=== PATIENT | male | born 1995 | race Two or more races ===

== ENCOUNTER 2021-11-16 16:30 | Emergency (ER) | payer BC, SELFPAY ==
--- NOTE | ~2021-11-16 | CT_ITS ---
EXAMINATION: CT ABDOMEN AND PELVIS WITH CONTRAST CLINICAL INFORMATION: Left lower quadrant pain, diarrhea. COMPARISON: None TECHNIQUE: Multidetector volumetric images were obtained from the superior aspect of the liver through the pubic symphysis following administration 85 mL of Omnipaque 350 intravenous contrast. Sagittal and coronal reformatted images were obtained on the technologist's workstation. Oral contrast: No This CT examination was performed using dose optimization techniques as appropriate, variously including the following: *Automated exposure control *Adjustment of mA and/or kV according to patient size (this includes techniques or standardized protocols for targeted exams where dose is matched to indication/reason for exam; i.e. extremities or head) *Use of iterative reconstruction technique DLP: 424 mGy-cm FINDINGS: LUNG BASES: The visualized lung bases are unremarkable. LIVER, GALLBLADDER, AND BILIARY TREE: Tiny hypoechoic focus anterosuperiorly in the left lobe measuring 0.4 cm (image 11, series 3). A second similar focus laterally in the right lobe measures 0.2 cm (image 28, series 3). No other significant hepatobiliary abnormality. PANCREAS: Unremarkable. SPLEEN: Unremarkable. ADRENAL GLANDS: Unremarkable. KIDNEYS AND URETERS: The kidneys are normal in size, shape, and attenuation. No hydronephrosis, hydroureter, or calculi seen. No perinephric stranding. BLADDER: Minimally distended limiting evaluation without overt abnormality. GASTROINTESTINAL TRACT: The stomach and small bowel unremarkable. The appendix appears surgically absent with surgical clips at the base of the cecum and right lower quadrant without abnormality. The colon and rectum are unremarkable. ABDOMINAL WALL: No significant hernia is appreciated. LYMPH NODES: No lymphadenopathy. VASCULAR: Unremarkable. PELVIC VISCERA: Unremarkable. OSSEOUS STRUCTURES: Transitional L5-S1 with sacral CT/CT abdomen pelvis w con IMPRESSION: 1. No acute intra-abdominal/pelvic abnormality. No significant bowel abnormality. 2. Tiny hepatic foci are too small likely characterize, but demonstrate benign features. No other significant hepatic abnormality.
[2021-11-16 16:45] VITALS: BP 158/109; PULSE 112; RESP 20; TEMP 37.2; O2SAT 98; BMI 22.3
[2021-11-16 17:16] LABS: MANUAL DIFF FLAG NO
[2021-11-16 17:31] LABS: Anion Gap 14 (12-20); Blood Urea Nitrogen 11 mg/dL (9-16); Calcium 10.1 mg/dL (8.4-10.2); Carbon Dioxide 24 mmol/L (22-29); Chloride 103 mmol/L (96-108); Creatinine Clr Calc Pharmacy 150.5; Estimated Glomerular Filt Rate > 60; Glucose Random 107 mg/dL (60-115); Potassium 3.7 mmol/L (3.3-5.1); Sodium 137 mmol/L (135-145)
[2021-11-16 17:47] LABS: Basophils Percent Auto 0.4 % (0-2); Eosinophils Percent Auto 0.2 % (0-4); Hematocrit 44.3 % (42.0-52.0); Imm Gran Abs Auto 0.08 X10*3/uL (0.00-0.03); Imm Gran Pct Auto 0.9 % (0.0-0.4); Lymphocytes Absolute Auto 2.4 X10*3/uL (1.2-4.9); Lymphocytes Percent Auto 26.2 % (20-40); Mean Corpuscular HGB Conc 36.1 g/dl (31.0-36.0); Mean Corpuscular Hemoglobin 31.3 pg (27.0-33.0); Mean Corpuscular Volume 86.7 fL (80.0-98.0); Mean Platelet Volume 9.8 fL (9.4-12.4); Monocytes Percent Auto 10.8 % (2-11); Neutrophils Absolute Auto 5.7 x10*3/uL (2.0-8.3); Neutrophils Percent Auto 61.5 % (45-73); Platelet Count 254 X10*3/uL (160-400); Red Blood Count 5.11 X10*6/uL (4.60-5.80); Red Cell Distribution Width 12.8 % (11.0-16.0); White Blood Count 9.3 X10*3/uL (4.8-10.8)
--- NOTE | 2021-11-16 19:31 | ED_ITS ---
HPI - Abdominal Pain General Chief Complaint: Abdominal Pain <DERECK Sewell Last Filed: 11/16/21 21:10> Stated Complaint: abd pain - [facility] <DERECK Sewell Last Filed: 11/16/21 21:10> Time Seen by Provider: 11/16/21 19:29 <DERECK Sewell Last Filed: 11/16/21 21:10> Source: patient <DERECK Sewell Last Filed: 11/16/21 21:10> Mode of arrival: ambulatory <DERECK Sewell Last Filed: 11/16/21 21:10> Limitations: no limitations <DERECK Sewell Last Filed: 11/16/21 21:10> History of Present Illness HPI narrative: 26-year-old male previously healthy here with reports of 4 days of left lower quadrant abdominal pain with associated diarrhea and nausea. Patient reports 8-10 episodes of diarrhea a day. No vomiting. No fevers or chills. The patient reports his stools have appeared dark. He has taken intermittent Pepto-Bismol. He was seen at urgent care today and referred into the emergency department for further evaluation. He did have a negative COVID test there. No recent travel or sick contact. <DERECK Sewell Last Filed: 11/16/21 21:10> Related Data Home Medications: Previous Rx's Medication Instructions Recorded dicyclomine 10 mg capsule 10 mg PO TID PRN #15 cap 11/16/21 ondansetron 4 mg disintegrating 4 mg PO Q6H PRN #10 tab 11/16/21 tablet <DERECK Sewell Last Filed: 11/16/21 21:10> Allergies/Adverse Reactions: Allergies Allergy/AdvReac Type Severity Reaction Status Date / Time No Known Allergies Allergy Unverified 06/29/20 19:11 [No Known Allergies*] <DERECK Sewell Last Filed: 11/16/21 21:10> Review of Systems Review of Systems Yes all other systems are reviewed and are negative <DERECK Sewell Last Filed: 11/16/21 21:10> Constitutional: Reports no additional constitutional complaints, Denies body ache(s), Denies chills, Denies fever(s), Denies headache(s) and Denies weakness <Aubrie Monaco NP - Last Filed: 11/16/21 21:10> Eyes: Reports no additional eye complaints and Denies change in vision <Aubrie Monaco NP - Last Filed: 11/16/21 21:10> Reports system reviewed and no additional complaints, except as documente d, Denies dizziness, Denies headache(s), Denies nasal congestion, Denies nasal discharge and Denies neck pain <Aubrie Monaco NP - Last Filed: 11/16/21 21:10> Cardiovascular: Reports no additional cardiovascular complaints, Denies chest pain, Denies leg edema and Denies dyspnea <Aubrie Monaco NP - Last Filed: 11/16/21 21:10> Respiratory: Reports no additional respiratory complaints, Denies cough and Denies dyspnea <Aubrie Monaco NP - Last Filed: 11/16/21 21:10> Gastrointestinal: Reports no additional gastrointestinal complaints, Reports abdominal pain, Reports melena, Reports diarrhea, Reports nausea and Denies vomiting <Aubrie Monaco NP - Last Filed: 11/16/21 21:10> Genitourinary: Denies urinary incontinence <Aubrie Monaco NP - Last Filed: 11/16/21 21:10> Musculoskeletal: Reports no additional musculoskeletal complaints, Denies back pain, Denies arthralgias, Denies joint swelling, Denies neck pain, Denies numbness and Denies tingling <Aubrie Monaco NP - Last Filed: 11/16/21 21:10> Skin/Breast: Reports system reviewed and no additional complaints, except as docu and Denies rash <Aubrie Monaco NP - Last Filed: 11/16/21 21:10> Reports system reviewed and no additional complaints, except as documented, Denies Abnormal speech present, Denies dizziness, Denies headache(s), Denies numbness, Denies tingling and Denies weakness <Aubrie Monaco NP - Last Filed: 11/16/21 21:10> Physical Exam Verdana 4l Vital Signs: Verdana 4d Verdana 4d Vital Signs: Verdana 4d Verdana 4Bd Last Vital Signs Verdana 4d Director Of Retail Operations New 4d Director Of Retail Operations New 4d Temp 98.3 F 11/16/21 20:58 Director Of Retail Operations New 4d Pulse 85 11/16/21 20:58 Director Of Retail Operations New 4d Resp 18 11/16/21 20:58 BP 150/91 H 11/16/21 20:58 Pulse Ox 99 11/16/21 20:58 BMI result Body Mass Index 22.3 <Aubrie Monaco NP - Last Filed: 11/16/21 21:10> Vital Signs: Last Vital Signs Temp 98.3 F 11/16/21 20:58 Pulse 85 11/16/21 20:58 Resp 18 11/16/21 20:58 BP 150/91 H 11/16/21 20:58 Pulse Ox 99 11/16/21 20:58 BMI result Body Mass Index 22.3 <MERT Osborn - Last Filed: 11/16/21 22:24> Const: General: cooperative, healthy appearing, comfortable and no acute distress <Aubrie Monaco NP - Last Filed: 11/16/21 21:10> Orientation/consciousness: patient oriented x3 <Aubrie Monaco NP - Last Filed: 11/16/21 21:10> Limitations: no limitations <Aubrie Monaco NP - Last Filed: 11/16/21 21:10> HENMT: Head: Yes normal to inspection <Aubrie Monaco NP - Last Filed: 11/16/21 21:10> Ears: hearing grossly normal bilaterally <Aubrie Monaco NP - Last Filed: 11/16/21 21:10> General nose exam: Normal external nose present <Aubrie Monaco NP - Last Filed: 11/16/21 21:10> Face and sinus: Yes normal facial exam <Aburie Monaco NP - Last Filed: 11/16/21 21:10> Mouth: Normal oral and palatal mucosa present <Aubrie Monaco NP - Last Filed: 11/16/21 21:10> Throat: Yes posterior oropharynx normal <Aubrie Monaco NP - Last Filed: 11/16/21 21:10> Eyes: General: appearance normal, both eyes and all related structures <Aubrie fraga NP - Last Filed: 11/16/21 21:10> Pupils: Equal, round and reactive pupils present <Aubrie Monaco NP - Last Filed: 11/16/21 21:10> Neck: Neck: Yes normal visual inspection <Aubrie Monaco NP - Last Filed: 11/16/21 21:10> Chest: Chest palpation & inspection: normal inspection of the chest <Aubrie Monaco NP - Last Filed: 11/16/21 21:10> Resp: Effort & Inspection: normal respiratory effort <Aubrie Monaco NP - Last Filed: 11/16/21 21:10> Auscultation: clear to auscultation bilaterally <Aubrie Monaco NP - Last Filed: 11/16/21 21:10> Cardio: Rate: regular rate <Aubrie Monaco NP - Last Filed: 11/16/21 21:10> Rhythm: regular rhythm <Aubrie Monaco NP - Last Filed: 11/16/21 21:10> Peripheral pulses: Peripheral pulses 2+ throughout <Aubrie Monaco NP - Last Filed: 11/16/21 21:10> GI: Other: patient had small BM in hat which was brown in appearance. <Aubrie Monaco NP - Last Filed: 11/16/21 21:10> Inspection: Yes normal to inspection <Aubrie Monaco NP - Last Filed: 02/01 21:10> Palpation (GI): Soft to palpation and Tenderness to palpation present (GI) (Left lower quadrant-no rebound or guarding) <Aubrie Monaco NP - Last Filed: 11/16/21 21:10> Auscultation: normal bowel sounds <Aubrie Monaco NP - Last Filed: 11/16/21 21:10> Back/Spine/Pelvis: Thoracic/Lumbar Spine: thoracic and lumbar spine normal to inspection <Aubrie Monaco NP - Last Filed: 11/16/21 21:10> Skin: General skin exam: no rashes or lesions noted <Aubrie Monaco NP - Last Filed: 11/16/21 21:10> Neuro: General: patient oriented x3, no focal motor deficits and normal sensation to monofilament <Aubrie Monaco NP - Last Filed: 11/16/21 21:10> Cranial nerves: Yes Equal, round and reactive pupils present <Aubrie Monaco NP - Last Filed: 11/16/21 21:10> Cognition (Neuro): normal cognition <Aubrie Monaco NP - Last Filed: 0 11/16/21 21:10> Speech: No Abnormal speech present <Aubrie Monaco NP - Last Filed: 11/16/21 21:10> Gait exam (Neuro): Normal gait present <Aubrie Monaco NP - Last Filed: 11/16/21 21:10> Motor exam (neuro): 5/5 motor strength present throughout <Aubrie Monaco NP - Last Filed: 11/16/21 21:10> Extrem: General: Yes normal to inspection <Aubrie Monaco NP - Last Filed: 11/16/21 21:10> Course Course Course Narrative: 26-year-old male here with nausea, left lower quadrant abdominal pain and diarrhea with stools that appeared dark in color for the last 4 days. Will need labs, UA, CT abdomen pelvis an occult stool [id number]-sign out to Arianna PAINTING pending CT <Aubrie Monaco NP - Last Filed: 11/16/21 21:10> Reevaluation(s) Reevaluation #1: CT scan negative likely gastroenteritis. Patient reports significant improvement. Tolerating fluids and food. Comfortable with discharge home. <MERT Osborn - Last Filed: 11/16/21 22:24> MDM - Abdominal Pain MDM Narrative Medical decision making narrative: dvert, GI bleed, gastroenteritis Low concern for infectious diarrhea with symptoms less than 4 days <Aubrie Monaco NP - Last Filed: 11/16/21 21:10> Medical Records Attestation: I reviewed the patient's medical records. <Aubrie Monaco NP - Last Filed: 11/16/21 21:10> Lab Data Attestation: I reviewed the patient's lab results. <Aubrie Monaco NP - Last Filed: 11/16/21 21:10> Result diagrams: : 11/16/21 17:12 11/16/21 17:12 <Aubrie Monaco NP - Last Filed: 11/16/21 21:10> Labs: Lab Results 11/16/21 11/16/21 11/16/21 Range/Units 17:12 17:12 20:41 WBC 9.3 (4.8-10.8) X10*3/uL RBC 5.11 (4.60-5.80) X10*6/uL Hgb 16.0 (14.0-18.0) g/dl Hct 44.3 (42.0-52.0) % MCV 86.7 (80.0-98.0) fL MCH 31.3 (27.0-33.0) pg MCHC 36.1 H (31.0-36.0) g/dl RDW 12.8 (11.0-16.0) % Plt Count 254 (160-400) X10*3/uL MPV 9.8 (9.4-12.4) fL Immature Gran % (Auto) 0.9 H (0.0-0.4) % Neut % (Auto) 61.5 (45-73) % Lymph % (Auto) 26.2 (20-40) % Smith % (Auto) 10.8 (2-11) % Eos % (Auto) 0.2 (0-4) % Baso % (Auto) 0.4 (0-2) % Lymph # (Auto) 2.4 (1.2-4.9) X10*3/uL Smith # (Auto) 1.0 (0.1-1.2) X10*3/uL Eos # (Auto) 0.0 (0.0-0.4) X10*3/uL Baso # (Auto) 0.0 (0.0-0.2) X10*3/uL Abs Immat Gran (auto) 0.08 H (0.00-0.03) X10*3/uL Absolute Neuts (auto) 5.7 (2.0-8.3) x10*3/uL Absolute Nucleated RBC 0.000 (0.0-0.012) X10*3/uL Nucleated RBC % (auto) 0.0 (0.0-0.2) /100WBC Sodium 137 (135-145) mmol/L Potassium 3.7 (3.3-5.1) mmol/L Chloride 103 (96-108) mmol/L Carbon Dioxide 24 (22-29) mmol/L Anion Gap 14 (12-20) BUN 11 (9-16) mg/dL Creatinine 0.75 (0.5-1.4) mg/dL Estim Creat Clear Calc 150.5 Estimated GFR > 60 Random Glucose 107 (60-115) mg/dL Calcium 10.1 (8.4-10.2) mg/dL Urine Color OTHER A Urine Appearance HAZY Urine pH 6.0 (5.0-8.0) Ur Specific Cando >= 1.030 H (1.005-1.025) Urine Protein 1+ H (NEG-TRACE) MG/DL Urine Glucose (UA) NEG (NEG) MG/DL Urine Ketones 5 (NEG) MG/DL Urine Blood TRACE (NEG) Urine Nitrite NEG (NEG) Ur Leukocyte Esterase NEG (NEG) Urine RBC 0 (0) /HPF Urine WBC 1-4 (0-4) /HPF Ur Squamous Epith Cells TRACE /LPF Urine Bacteria NONE /LPF Urine Mucus 4+ /LPF Stool Occult Blood (NEGATIVE) 11/16/21 Range/Units 20:41 WBC (4.8-10.8) X10*3/uL RBC (4.60-5.80) X10*6/uL Hgb (14.0-18.0) g/dl Hct (42.0-52.0) % MCV (80.0-98.0) fL MCH (27.0-33.0) pg MCHC (31.0-36.0) g/dl RDW (11.0-16.0) % Plt Count (160-400) X10*3/uL MPV (9.4-12.4) fL Immature Gran % (Auto) (0.0-0.4) % Neut % (Auto) (45-73) % Lymph % (Auto) (20-40) % Smith % (Auto) (2-11) % Eos % (Auto) (0-4) % Baso % (Auto) (0-2) % Lymph # (Auto) (1.2-4.9) X10*3/uL Smith # (Auto) (0.1-1.2) X10*3/uL Eos # (Auto) (0.0-0.4) X10*3/uL Baso # (Auto) (0.0-0.2) X10*3/uL Abs Immat Gran (auto) (0.00-0.03) X10*3/uL Absolute Neuts (auto) (2.0-8.3) x10*3/uL Absolute Nucleated RBC (0.0-0.012) X10*3/uL Nucleated RBC % (auto) (0.0-0.2) /100WBC Sodium (135-145) mmol/L Potassium (3.3-5.1) mmol/L Chloride (96-108) mmol/L Carbon Dioxide (22-29) mmol/L Anion Gap (12-20) BUN (9-16) mg/dL Creatinine (0.5-1.4) mg/dL Estim Creat Clear Calc Estimated GFR Random Glucose (60-115) mg/dL Calcium (8.4-10.2) mg/dL Urine Color Urine Appearance Urine pH (5.0-8.0) Ur Specific Cando (1.005-1.025) Urine Protein (NEG-TRACE) MG/DL Urine Glucose (UA) (NEG) MG/DL Urine Ketones (NEG) MG/DL Urine Blood (NEG) Urine Nitrite (NEG) Ur Leukocyte Esterase (NEG) Urine RBC (0) /HPF Urine WBC (0-4) /HPF Ur Squamous Epith Cells /LPF Urine Bacteria /LPF Urine Mucus /LPF Stool Occult Blood NEGATIVE (NEGATIVE) <Aubrie Monaco BULK SEALER - Last Filed: 11/16/21 21:10> Lab Results 11/16/21 11/16/21 11/16/21 Range/Units 17:12 17:12 20:41 WBC 9.3 (4.8-10.8) X10*3/uL RBC 5.11 (4.60-5.80) X10*6/uL Hgb 16.0 (14.0-18.0) g/dl Hct 44.3 (42.0-52.0) % MCV 86.7 (80.0-98.0) fL MCH 31.3 (27.0-33.0) pg MCHC 36.1 H (31.0-36.0) g/dl RDW 12.8 (11.0-16.0) % Plt Count 254 (160-400) X10*3/uL MPV 9.8 (9.4-12.4) fL Immature Gran % (Auto) 0.9 H (0.0-0.4) % Neut % (Auto) 61.5 (45-73) % Lymph % (Auto) 26.2 (20-40) % Smith % (Auto) 10.8 (2-11) % Eos % (Auto) 0.2 (0-4) % Baso % (Auto) 0.4 (0-2) % Lymph # (Auto) 2.4 (1.2-4.9) X10*3/uL Smith # (Auto) 1.0 (0.1-1.2) X10*3/uL Eos # (Auto) 0.0 (0.0-0.4) X10*3/uL Baso # (Auto) 0.0 (0.0-0.2) X10*3/uL Abs Immat Gran (auto) 0.08 H (0.00-0.03) X10*3/uL Absolute Neuts (auto) 5.7 (2.0-8.3) x10*3/uL Absolute Nucleated RBC 0.000 (0.0-0.012) X10*3/uL Nucleated RBC % (auto) 0.0 (0.0-0.2) /100WBC Sodium 137 (135-145) mmol/L Potassium 3.7 (3.3-5.1) mmol/L Chloride 103 (96-108) mmol/L Carbon Dioxide 24 (22-29) mmol/L Anion Gap 14 (12-20) BUN 11 (9-16) mg/dL Creatinine 0.75 (0.5-1.4) mg/dL Estim Creat Clear Calc 150.5 Estimated GFR > 60 Random Glucose 107 (60-115) mg/dL Calcium 10.1 (8.4-10.2) mg/dL Urine Color OTHER A Urine Appearance HAZY Urine pH 6.0 (5.0-8.0) Ur Specific Cando >= 1.030 H (1.005-1.025) Urine Protein 1+ H (NEG-TRACE) MG/DL Urine Glucose (UA) NEG (NEG) MG/DL Urine Ketones 5 (NEG) MG/DL Urine Blood TRACE (NEG) Urine Nitrite NEG (NEG) Ur Leukocyte Esterase NEG (NEG) Urine RBC 0 (0) /HPF Urine WBC 1-4 (0-4) /HPF Ur Squamous Epith Cells TRACE /LPF Urine Bacteria NONE /LPF Urine Mucus 4+ /LPF Stool Occult Blood (NEGATIVE) 11/16/21 Range/Units 20:41 WBC (4.8-10.8) X10*3/uL RBC (4.60-5.80) X10*6/uL Hgb (14.0-18.0) g/dl Hct (42.0-52.0) % MCV (80.0-98.0) fL MCH (27.0-33.0) pg MCHC (31.0-36.0) g/dl RDW (11.0-16.0) % Plt Count (160-400) X10*3/uL MPV (9.4-12.4) fL Immature Gran % (Auto) (0.0-0.4) % Neut % (Auto) (45-73) % Lymph % (Auto) (20-40) % Smith % (Auto) (2-11) % Eos % (Auto) (0-4) % Baso % (Auto) (0-2) % Lymph # (Auto) (1.2-4.9) X10*3/uL Smith # (Auto) (0.1-1.2) X10*3/uL Eos # (Auto) (0.0-0.4) X10*3/uL Baso # (Auto) (0.0-0.2) X10*3/uL Abs Immat Gran (auto) (0.00-0.03) X10*3/uL Absolute Neuts (auto) (2.0-8.3) x10*3/uL Absolute Nucleated RBC (0.0-0.012) X10*3/uL Nucleated RBC % (auto) (0.0-0.2) /100WBC Sodium (135-145) mmol/L Potassium (3.3-5.1) mmol/L Chloride (96-108) mmol/L Carbon Dioxide (22-29) mmol/L Anion Gap (12-20) BUN (9-16) mg/dL Creatinine (0.5-1.4) mg/dL Estim Creat Clear Calc Estimated GFR Random Glucose (60-115) mg/dL Calcium (8.4-10.2) mg/dL Urine Color Urine Appearance Urine pH (5.0-8.0) Ur Specific Cando (1.005-1.025) Urine Protein (NEG-TRACE) MG/DL Urine Glucose (UA) (NEG) MG/DL Urine Ketones (NEG) MG/DL Urine Blood (NEG) Urine Nitrite (NEG) Ur Leukocyte Esterase (NEG) Urine RBC (0) /HPF Urine WBC (0-4) /HPF Ur Squamous Epith Cells /LPF Urine Bacteria /LPF Urine Mucus /LPF Stool Occult Blood NEGATIVE (NEGATIVE) <MERT Osborn - Last Filed: 11/16/21 22:24> Critical Care Time Critical Care Time Critical Care Time: No <MERT Osborn - Last Filed: 11/16/21 22:24> Discharge Plan Discharge Clinical Impression: Gastroenteritis <Aubrie Monaco NP - Last Filed: 11/16/21 21:10> Patient Disposition: Still a Patient <Aubrie Monaco NP - Last Filed: 11/16/21 21:10> Additional Instructions: Start with clear liquids and advance diet as tolerated Increase fluids, rest Return for fever 100.4, 2 or more vomiting episodes, worsening pain or diarrhea <Aubrie Monaco NP - Last Filed: 11/16/21 21:10> Prescriptions: New ondansetron 4 mg tablet,disintegrating 4 mg PO Q6H PRN (Reason: nausea and vomiting) Qty: 10 0RF dicyclomine 10 mg capsule 10 mg PO TID PRN (Reason: abdominal pain) Qty: 15 0RF <Aubrie Monaco NP - Last Filed: 11/16/21 21:10> Referrals: Physician,None [Primary Care Provider] - 2 days <Aubrie Monaco NP - Last Filed: 11/16/21 21:10> Stand Alone Forms: Work/School Release <Aubrie Monaco NP - Last Filed: 11/16/21 21:10> [facility] Past Medical History Attestation statement: The following information was validated with the patient. <Aubrie Monaco NP - Last Filed: 11/16/21 21:10> Source: old records reviewed and nursing notes reviewed <Aubrie Monaco NP - Last Filed: 11/16/21 21:10> Medical History: Medical History No known health problems <Aubrie Monaco NP - Last Filed: 11/16/21 21:10> Social History Social History: Social History Advance Directives: No Advance Directives Information Provided: No <Aubrie Monaco NP - Last Filed: 11/16/21 21:10>
[2021-11-16] MEDS: 0.9 % Sodium Chloride 1,000 ML 999 ML IV (20:33)
[2021-11-16 20:48] LABS: Appearance Urine HAZY; Color Urine OTHER; Glucose Urine UA NEG (NEG); Leukocyte Esterase Urine NEG (NEG); Nitrite Urine NEG (NEG); Specific Gravity - Urine >= 1.030 (1.005-1.025); UACC Culture Trigger NO; Urine Blood TRACE (NEG); Urine Ketones 5 MG/DL (NEG); Urine Protein 1+ MG/DL (NEG-TRACE)
[2021-11-16 20:49] LABS: OBS Int Ctl Valid YES; OBS1 NEGATIVE (NEGATIVE)
[2021-11-16] MEDS: iohexoL 350 MG/ML 100 ML INFUS..BTL IV (20:56)
[2021-11-16 20:58] VITALS: BP 150/91; PULSE 85; RESP 18; TEMP 36.8; O2SAT 99
[2021-11-16 21:01] LABS: Mucus Urine 4+ /LPF; RBC Urine 0 /HPF (0); Squamous Epithelial Cell Urine TRACE /LPF
== END 2021-11-16 23:05 | disposition home or self-care (01) ==
PROVIDERS: Emergency Medicine; Nurse Practitioner Family; Emergency Provider Emergency Medicine Emergency Medical Services
DX: K52.9 Noninfective gastroenteritis and colitis, unspecified (principal)
CPT/HCPCS: 36415; 74177; 80048; 81001; 82272; 85025; 96360; 99284; Q9967

== ENCOUNTER 2022-04-21 22:27 | Emergency (ER) | payer SELFPAY ==
[2022-04-21 22:43] VITALS: BMI 24.9
--- NOTE | 2022-04-21 22:46 | PC.NURSE ---
patient would not allow this RN to take vital signs. Patient needed to be chemically and mechanically restrained per Dr. aguillon
[2022-04-21 22:49] VITALS: RESP 30
[2022-04-21] MEDS: Midazolam HCl/PF 2 MG/2 ML VIAL IM (22:49)
[2022-04-21] MEDS: Haloperidol Lactate 5 MG/ML VIAL IM ×2 (22:49→23:54)
[2022-04-21 23:04] VITALS: BP 130/75; PULSE 108; RESP 27; O2SAT 98
--- NOTE | 2022-04-21 23:12 | ED.PSYCH ---
HPI - Psych General Chief Complaint: Psychiatric Symptoms Stated Complaint: ETOH Time Seen by Provider: 04/21/22 22:37 History of Present Illness HPI Narrative: Patient is a 26-year-old male presents today grossly intoxicated agitated patient unable to give detailed history was found in the hallway of an a building completely agitated. Long history of alcohol abuse. Related Data Previous Rx's Medication Instructions Recorded dicyclomine 10 mg capsule 10 mg PO TID PRN abdominal pain 11/16/21 #15 caps ondansetron 4 mg disintegrating 4 mg PO Q6H PRN nausea and 11/16/21 tablet vomiting #10 tabs Allergies Allergy/AdvReac Type Severity Reaction Status Date / Time No Known Allergies Allergy Unverified 06/29/20 19:11 [No Known Allergies*] Review of Systems Review of Systems: Refused to answer specific review system Yes Unobtainable due to mental status [facility] Past Medical History Attestation statement: The following information was validated with the patient. Medical History No known health problems Social History Social History Advance Directives: No Advance Directives Information Provided: No Physical Exam Vital Signs: Vital Signs: Last Vital Signs Pulse 76 04/22/22 02:38 Resp 18 04/22/22 05:20 BP 110/62 04/22/22 02:38 Pulse Ox 97 04/22/22 00:49 O2 Del Method 04/22/22 00:49 BMI result Body Mass Index 24.9 Appearance: Alert. Agitated Eyes: Pupils equal, round and reactive to light. ENT: Pharynx normal. Neck: Normal inspection. Neck supple. No lymph nodes noted. No crepitus CVS: Normal heart rate and rhythm. Pulses normal. Normal S1 and S2 Respiratory: No respiratory distress. Breath sounds normal. No Wheezing. No rales Abdomen: Soft and nontender. No rigidity. No distention. good BS x4 Skin: Skin warm and dry. Normal skin color. Normal skin turgor. Extremities: No lower extremity edema. Neurovascular intact to all extremities. No Lacerations. No Rash Neuro: Agitated moving all extremities No motor deficit. No sensory deficit. Moving all extermities. No slurred speech MDM - Psych MDM Narrative Medical decision making narrative: Patient extremely agitated danger to self and others. Try to redirect patient to no avail. Versed and Haldol was given for sedation. Will monitor very carefully. Patient placed in 4 point restraints for his safety. Will monitor. In a.m. patient awake alert no suicidal homicidal ideation. Patient ambulating with normal gait. No distress. Will discharge patient home. Stated he drank alcohol earlier is trying to avoid police. Patient being discharged Medical Records Attestation: I reviewed the patient's medical records. Lab Data Attestation: I reviewed the patient's lab results. Discharge Plan Discharge Clinical Impression: Alcohol intoxication Patient Disposition: Home, Self-Care Instructions: Abuse of Alcohol (ED) Additional Instructions: Please stop drinking alcohol. Prescriptions: No Action ondansetron 4 mg tablet,disintegrating 4 mg PO Q6H PRN (Reason: nausea and vomiting) Qty: 10 0RF dicyclomine 10 mg capsule 10 mg PO TID PRN (Reason: abdominal pain) Qty: 15 0RF Referrals: Physician,Unknown J [Primary Care Provider] -
[2022-04-21 23:19] VITALS: BP 118/68; PULSE 93; RESP 20
--- NOTE | 2022-04-21 23:24 | PC.NURSE ---
Pt made contract to remain in behavioral control if we released one arm from restraints at 2305. Shortly afterwards pt started to yell obscenities at this RN and then attempted to remove the restraint from his other arm after this RN repeatedly instructed him to stop. Pt placed back in full restraints.
[2022-04-21 23:34] VITALS: BP 107/70; PULSE 88; RESP 20; O2SAT 97
--- NOTE | 2022-04-21 23:44 | PC.NURSE ---
EDUARDO Riojas given report and assuming care for patient
[2022-04-21 23:49] VITALS: BP 108/62; PULSE 88; RESP 18; O2SAT 97
[2022-04-22] VITALS (10 sets, daily range): BP systolic 96–122; BP diastolic 42–68; PULSE 70–76; RESP 16–18; O2SAT 97
--- NOTE | 2022-04-22 00:04 | PC.NURSE ---
This RN was attempting to explain the reason that the pt was in the hospital and how to be released from the hospital in a timely and appropriate manner. Pt continued with belligerent speech and behavior and then proceeded to spit in this RN's face. This event was shortly after pt received the second 5 mg dose of IM Haldol.
== END 2022-04-22 06:27 | disposition home or self-care (01) ==
PROVIDERS: Emergency Provider Emergency Medicine Emergency Medical Services
DX: F10.120 Alcohol abuse with intoxication, uncomplicated (principal); Y90.9 Presence of alcohol in blood, level not specified; R45.1 Restlessness and agitation
CPT/HCPCS: 96372; 99284; 99285; J2250

== ENCOUNTER 2022-10-30 11:12 | Emergency (ER) | payer MEDICAID, SELFPAY ==
[2022-10-30 11:19] VITALS: BP 159/105; PULSE 90; RESP 19; TEMP 36.6; O2SAT 99; BMI 21.7
--- NOTE | 2022-10-30 11:20 | ED.URI ---
HPI - URI/Sore Throat General Chief Complaint: Upper Respiratory Symptoms <MERT Hill Last Filed: 10/30/22 11:26> Stated Complaint: Sore throat <MERT Hill Last Filed: 10/30/22 11:26> Time Seen by Provider: 10/30/22 12:43 <MERT Hill Last Filed: 10/30/22 11:26> Source: patient <MERT Hsu Last Filed: 10/30/22 14:35> Mode of arrival: ambulatory <MERT Hsu Last Filed: 10/30/22 14:35> Limitations: no limitations <MERT Hsu Last Filed: 10/30/22 14:35> History of Present Illness HPI Narrative: 27-year-old male presents to the ER for evaluation of sore throat, body aches and cough for the last 1 week. Patient states of the sore throat has been getting worse and worse over the last 1 week. He is able to eat and drink but it is painful. He states he has woken up twice this week with drenching night sweats. No known sick contacts. He did recently have sexual activity with a girl who had a sexually transmitted disease. He currently has no symptoms would like to get tested. He would like to get treated. He denies any nausea, vomiting, abdominal pain. No testicular pain. No dysuria, frequency, urgency or hematuria. <MERT Hsu Last Filed: 10/30/22 14:35> MD elicited complaint: sore throat <MERT Hsu Last Filed: 10/30/22 14:35> Onset (ago): week(s) (1) <MERT Hsu Last Filed: 10/30/22 14:35> Consistency: progressively worsening <MERT Hsu Last Filed: 10/30/22 14:35> Severity: moderate <MERT Hsu Last Filed: 10/30/22 14:35> Description of mucous: clear <MERT Hsu Last Filed: 10/30/22 14:35> Able to tolerate fluids by mouth: Yes <MERT Hsu Last Filed: 10/30/22 14:35> Exacerbating factors: swallowing <MERT Hsu - Last Filed: 10/30/22 14:35> Relieving factors: OTC cold medicine and gargling <MERT Hsu - Last Filed: 10/30/22 14:35> Associated symptoms: fever, myalgias, nasal congestion, sore throat and cough <MERT Hsu - Last Filed: 10/30/22 14:35> Treatments prior to arrival: none <MERT Hsu - Last Filed: 10/30/22 14:35> Related Data Home Medications: Previous Rx's Medication Instructions Recorded dicyclomine 10 mg capsule 10 mg PO TID PRN abdominal pain 11/16/21 #15 caps ondansetron 4 mg disintegrating 4 mg PO Q6H PRN nausea and 11/16/21 tablet vomiting #10 tabs amoxicillin 875 mg-potassium 1 tab PO BID #20 tabs 10/30/22 clavulanate 125 mg tablet doxycycline monohydrate 100 mg 100 mg PO BID #14 caps 10/30/22 capsule <MERT Hill - Last Filed: 10/30/22 11:26> Allergies/Adverse Reactions: Allergies Allergy/AdvReac Type Severity Reaction Status Date / Time No Known Allergies Allergy Unverified 06/29/20 19:11 [No Known Allergies*] <MERT Hill - Last Filed: 10/30/22 11:26> Review of Systems Review of Systems: Yes all other systems are reviewed and are negative <MERT Hsu - Last Filed: 10/30/22 14:35> PMFSH Past Medical History Medical History: Medical History No known health problems <MERT Hill Last Filed: 10/30/22 11:26> Social History Social History: Social History Alcohol intake: current Alcohol intake frequency: a few times a week Smoked in Last 30 Days: Yes Use of substances other than those prescribed or required for medical reasons: Yes Substance Use Type: Marijuana Advance Directives: No Advance Directives Information Provided: No <MERT Hill - Last Filed: 10/30/22 11:26> Physical Exam Vital Signs: Vital Signs: Last Vital Signs Temp 98.5 F 10/30/22 12:42 Pulse 100 10/30/22 12:42 Resp 20 10/30/22 12:42 BP 147/101 H 10/30/22 12:42 Pulse Ox 97 10/30/22 12:42 O2 Del Method 10/30/22 12:42 BMI result Body Mass Index 21.7 <MERT Hill - Last Filed: 10/30/22 11:26> Vital Signs: Last Vital Signs Temp 98.5 F 10/30/22 12:42 Pulse 100 10/30/22 12:42 Resp 20 10/30/22 12:42 BP 147/101 H 10/30/22 12:42 Pulse Ox 97 10/30/22 12:42 O2 Del Method 10/30/22 12:42 BMI result Body Mass Index 21.7 <MERT Hsu - Last Filed: 10/30/22 14:35> Appearance: Alert. Oriented X3. No acute distress. Eyes: Pupils equal, round and reactive to light. ENT: Pharynx moist mucous membranes. Posterior oropharynx with severe generalized erythema, bilateral tonsillar enlargement with mild exudates bilaterally. Uvula midline. Normal voice, handling secretions normally. Clear nasal discharge. Normal tympanic membranes bilaterally. Neck: Normal inspection. Neck supple. Cervical lymphadenopathy noted. CVS: Normal heart rate and rhythm. Pulses normal. Respiratory: No respiratory distress. Breath sounds normal. Abdomen: Soft and nontender. +BS x4. Skin: Skin warm and dry. Normal skin color. Normal skin turgor. No rashes. Extremities: No lower extremity edema. Neuro: Oriented X 3. Grossly normal, nonfocal. <MERT Hsu - Last Filed: 10/30/22 14:35> Course Course Course Narrative: DERRICK 11:25am - 27-year-old male who reports he does not have a primary care provider presenting to the ER with complaints of chills, fatigue, malaise, body aches, sore throat for the past week. Reports that he also found his girlfriend doing some things therefore he kicked her out of the house and he is concerned for possible STDs. Although report reports he is not having any urinary symptoms or abnormal discharge or any lesions. Denies any recent oral intercourse. Plan: Will obtain basic labs to include RPR Monospot, rapid strep, UA, urine for gonorrhea chlamydia. Patient will be sent to the waiting room to be evaluated in [facility]. <MERT Hill - Last Filed: 10/30/22 11:26> Reevaluation(s) Reevaluation #1: Patient found to be positive for strep throat. His labs are otherwise unremarkable. Given Rocephin IM for STI, will DC home with doxycycline as well as Augmentin for his strep throat. Patient agrees with plan. Patient Portal set up so he can stop doxycycline if the chlamydia test is negative. <MERT Hsu - Last Filed: 10/30/22 14:35> Medications Administered Discontinued Medications Generic Name Dose Route Start Last Admin Trade Name Freq PRN Reason Stop Dose Admin Ceftriaxone Sodium 250 mg/ 0 mg 10/30/22 12:44 10/30/22 13:10 Lidocaine HCl 0.9 ml IM 10/30/22 12:45 1 kit ONCE ONE Administration Doxycycline Monohydrate 100 mg 10/30/22 12:44 10/30/22 13:10 Doxycycline Monohydrate 100 Mg Capsule PO 10/30/22 12:45 100 mg ONCE ONE Administration <MERT Hill - Last Filed: 10/30/22 11:26> Medications Administered Discontinued Medications Generic Name Dose Route Start Last Admin Trade Name Freq PRN Reason Stop Dose Admin Ceftriaxone Sodium 250 mg/ 0 mg 10/30/22 12:44 10/30/22 13:10 Lidocaine HCl 0.9 ml IM 10/30/22 12:45 1 kit ONCE ONE Administration Doxycycline Monohydrate 100 mg 10/30/22 12:44 10/30/22 13:10 Doxycycline Monohydrate 100 Mg Capsule PO 10/30/22 12:45 100 mg ONCE ONE Administration <MERT Hsu - Last Filed: 10/30/22 14:35> Medical Decision Making Differential Diagnosis Differential Diagnoses: The differential diagnosis associated with the presentation includes <MERT Hsu Last Filed: 10/30/22 14:35> Strep pharyngitis, viral pharyngitis, mononucleosis, COVID, flu, RSV, viral URI, less likely retropharyngeal abscess, peritonsillar abscess, oral gonorrhea. <MERT Hsu - Last Filed: 10/30/22 14:35> Lab Data MDM Lab Attestation statement: I reviewed the patient's lab results. <MERT Hsu - Last Filed: 10/30/22 14:35> Mild leukocytosis, WBC 11.2. Otherwise labs are unremarkable, no metabolic derangement, strep is positive, other viral swabs are negative. <MERT Hsu - Last Filed: 10/30/22 14:35> Result Diagrams: 10/30/22 11:40 10/30/22 11:40 <MERT Hill - Last Filed: 10/30/22 11:26> Labs: Lab Results 10/30/22 10/30/22 10/30/22 Range/Units 11:40 11:40 11:40 WBC 11.2 H (4.8-10.8) X10*3/uL RBC 5.63 (4.60-5.80) X10*6/uL Hgb 17.5 (14.0-18.0) g/dl Hct 51.2 (42.0-52.0) % MCV 90.9 (80.0-98.0) fL MCH 31.1 (27.0-33.0) pg MCHC 34.2 (31.0-36.0) g/dl RDW 14.9 (11.0-16.0) % Plt Count 210 (160-400) X10*3/uL MPV 9.6 (9.4-12.4) fL Immature Gran % (Auto) 1.2 H (0.0-0.4) % Neut % (Auto) 44.7 L (45-73) % Lymph % (Auto) 41.7 H (20-40) % [place] % (Auto) 11.0 (2-11) % Eos % (Auto) 0.5 (0-4) % Baso % (Auto) 0.9 (0-2) % Lymph # (Auto) 4.7 (1.2-4.9) X10*3/uL [place] # (Auto) 1.2 (0.1-1.2) X10*3/uL Eos # (Auto) 0.1 (0.0-0.4) X10*3/uL Baso # (Auto) 0.1 (0.0-0.2) X10*3/uL Abs Immat Gran (auto) 0.13 H (0.00-0.03) X10*3/uL Absolute Neuts (auto) 5.0 (2.0-8.3) x10*3/uL Absolute Nucleated RBC 0.000 (0.0-0.012) X10*3/uL Nucleated RBC % (auto) 0.0 (0.0-0.2) /100WBC Smear Tech's Comments VERIFIED Sodium (135-145) mmol/L Potassium (3.3-5.1) mmol/L Chloride (96-108) mmol/L Carbon Dioxide (22-29) mmol/L Anion Gap (12-20) BUN (9-16) mg/dL Creatinine (0.5-1.4) mg/dL Estim Creat Clear Calc Estimated GFR Random Glucose (60-115) mg/dL Calcium (8.4-10.2) mg/dL Magnesium (1.6-2.6) mg/dL Total Bilirubin (0.0-1.0) mg/dL AST (5-37) U/L ALT (0-40) U/L Alkaline Phosphatase (39-117) U/L Total Protein (6.5-8.0) g/dL Albumin (3.5-5.0) g/dL T.pallidum Ab (EIA) (Nonreactive) Monoscreen (Negative) Influenza Type A (PCR) NEGATIVE (Negative) Influenza Type B (PCR) NEGATIVE (Negative) RSV RNA Qual (PCR) NEGATIVE (Negative) SARS-CoV-2 RNA (RT-PCR) NEGATIVE (Negative) S. pyogenes GrpA DAVID Positive A (Negative) 10/30/22 10/30/22 10/30/22 Range/Units 11:40 11:40 11:40 WBC (4.8-10.8) X10*3/uL RBC (4.60-5.80) X10*6/uL Hgb (14.0-18.0) g/dl Hct (42.0-52.0) % MCV (80.0-98.0) fL MCH (27.0-33.0) pg MCHC (31.0-36.0) g/dl RDW (11.0-16.0) % Plt Count (160-400) X10*3/uL MPV (9.4-12.4) fL Immature Gran % (Auto) (0.0-0.4) % Neut % (Auto) (45-73) % Lymph % (Auto) (20-40) % [place] % (Auto) (2-11) % Eos % (Auto) (0-4) % Baso % (Auto) (0-2) % Lymph # (Auto) (1.2-4.9) X10*3/uL [place] # (Auto) (0.1-1.2) X10*3/uL Eos # (Auto) (0.0-0.4) X10*3/uL Baso # (Auto) (0.0-0.2) X10*3/uL Abs Immat Gran (auto) (0.00-0.03) X10*3/uL Absolute Neuts (auto) (2.0-8.3) x10*3/uL Absolute Nucleated RBC (0.0-0.012) X10*3/uL Nucleated RBC % (auto) (0.0-0.2) /100WBC Smear Tech's Comments Sodium 139 (135-145) mmol/L Potassium 4.5 D (3.3-5.1) mmol/L Chloride 101 (96-108) mmol/L Carbon Dioxide 27 (22-29) mmol/L Anion Gap 16 (12-20) BUN 9 (9-16) mg/dL Creatinine 0.77 (0.5-1.4) mg/dL Estim Creat Clear Calc 145.3 Estimated GFR > 60 Random Glucose 100 (60-115) mg/dL Calcium 9.7 (8.4-10.2) mg/dL Magnesium 1.7 (1.6-2.6) mg/dL Total Bilirubin 0.7 (0.0-1.0) mg/dL AST 128 H (5-37) U/L ALT 89 H (0-40) U/L Alkaline Phosphatase 210 H (39-117) U/L Total Protein 8.3 H (6.5-8.0) g/dL Albumin 4.3 (3.5-5.0) g/dL T.pallidum Ab (EIA) Nonreactive (Nonreactive) Monoscreen Negative (Negative) Influenza Type A (PCR) (Negative) Influenza Type B (PCR) (Negative) RSV RNA Qual (PCR) (Negative) SARS-CoV-2 RNA (RT-PCR) (Negative) S. pyogenes GrpA DAVID (Negative) <MERT Hill - Last Filed: 10/30/22 11:26> Lab Results 10/30/22 10/30/22 10/30/22 Range/Units 11:40 11:40 11:40 WBC 11.2 H (4.8-10.8) X10*3/uL RBC 5.63 (4.60-5.80) X10*6/uL Hgb 17.5 (14.0-18.0) g/dl Hct 51.2 (42.0-52.0) % MCV 90.9 (80.0-98.0) fL MCH 31.1 (27.0-33.0) pg MCHC 34.2 (31.0-36.0) g/dl RDW 14.9 (11.0-16.0) % Plt Count 210 (160-400) X10*3/uL MPV 9.6 (9.4-12.4) fL Immature Gran % (Auto) 1.2 H (0.0-0.4) % Neut % (Auto) 44.7 L (45-73) % Lymph % (Auto) 41.7 H (20-40) % [place] % (Auto) 11.0 (2-11) % Eos % (Auto) 0.5 (0-4) % Baso % (Auto) 0.9 (0-2) % Lymph # (Auto) 4.7 (1.2-4.9) X10*3/uL [place] # (Auto) 1.2 (0.1-1.2) X10*3/uL Eos # (Auto) 0.1 (0.0-0.4) X10*3/uL Baso # (Auto) 0.1 (0.0-0.2) X10*3/uL Abs Immat Gran (auto) 0.13 H (0.00-0.03) X10*3/uL Absolute Neuts (auto) 5.0 (2.0-8.3) x10*3/uL Absolute Nucleated RBC 0.000 (0.0-0.012) X10*3/uL Nucleated RBC % (auto) 0.0 (0.0-0.2) /100WBC Smear Tech's Comments VERIFIED Sodium (135-145) mmol/L Potassium (3.3-5.1) mmol/L Chloride (96-108) mmol/L Carbon Dioxide (22-29) mmol/L Anion Gap (12-20) BUN (9-16) mg/dL Creatinine (0.5-1.4) mg/dL Estim Creat Clear Calc Estimated GFR Random Glucose (60-115) mg/dL Calcium (8.4-10.2) mg/dL Magnesium (1.6-2.6) mg/dL Total Bilirubin (0.0-1.0) mg/dL AST (5-37) U/L ALT (0-40) U/L Alkaline Phosphatase (39-117) U/L Total Protein (6.5-8.0) g/dL Albumin (3.5-5.0) g/dL T.pallidum Ab (EIA) (Nonreactive) Monoscreen (Negative) Influenza Type A (PCR) NEGATIVE (Negative) Influenza Type B (PCR) NEGATIVE (Negative) RSV RNA Qual (PCR) NEGATIVE (Negative) SARS-CoV-2 RNA (RT-PCR) NEGATIVE (Negative) S. pyogenes GrpA DAVID Positive A (Negative) 10/30/22 10/30/22 10/30/22 Range/Units 11:40 11:40 11:40 WBC (4.8-10.8) X10*3/uL RBC (4.60-5.80) X10*6/uL Hgb (14.0-18.0) g/dl Hct (42.0-52.0) % MCV (80.0-98.0) fL MCH (27.0-33.0) pg MCHC (31.0-36.0) g/dl RDW (11.0-16.0) % Plt Count (160-400) X10*3/uL MPV (9.4-12.4) fL Immature Gran % (Auto) (0.0-0.4) % Neut % (Auto) (45-73) % Lymph % (Auto) (20-40) % [place] % (Auto) (2-11) % Eos % (Auto) (0-4) % Baso % (Auto) (0-2) % Lymph # (Auto) (1.2-4.9) X10*3/uL [place] # (Auto) (0.1-1.2) X10*3/uL Eos # (Auto) (0.0-0.4) X10*3/uL Baso # (Auto) (0.0-0.2) X10*3/uL Abs Immat Gran (auto) (0.00-0.03) X10*3/uL Absolute Neuts (auto) (2.0-8.3) x10*3/uL Absolute Nucleated RBC (0.0-0.012) X10*3/uL Nucleated RBC % (auto) (0.0-0.2) /100WBC Smear Tech's Comments Sodium 139 (135-145) mmol/L Potassium 4.5 D (3.3-5.1) mmol/L Chloride 101 (96-108) mmol/L Carbon Dioxide 27 (22-29) mmol/L Anion Gap 16 (12-20) BUN 9 (9-16) mg/dL Creatinine 0.77 (0.5-1.4) mg/dL Estim Creat Clear Calc 145.3 Estimated GFR > 60 Random Glucose 100 (60-115) mg/dL Calcium 9.7 (8.4-10.2) mg/dL Magnesium 1.7 (1.6-2.6) mg/dL Total Bilirubin 0.7 (0.0-1.0) mg/dL AST 128 H (5-37) U/L ALT 89 H (0-40) U/L Alkaline Phosphatase 210 H (39-117) U/L Total Protein 8.3 H (6.5-8.0) g/dL Albumin 4.3 (3.5-5.0) g/dL T.pallidum Ab (EIA) Nonreactive (Nonreactive) Monoscreen Negative (Negative) Influenza Type A (PCR) (Negative) Influenza Type B (PCR) (Negative) RSV RNA Qual (PCR) (Negative) SARS-CoV-2 RNA (RT-PCR) (Negative) S. pyogenes GrpA DAVID (Negative) <MERT Hsu - Last Filed: 10/30/22 14:35> External Record Review External record reviewed: Outpatient record and Prior outpatient labs <MERT Hsu Last Filed: 10/30/22 14:35> Prescription Management I considered prescription management with: Pain Medication and Antibiotic <MERT Hsu Last Filed: 10/30/22 14:35> Will prescribe Augmentin and doxycycline for treatment of strep throat and chlamydia respectively. Encouraged NSAIDs for pain control. <MERT Hsu Last Filed: 10/30/22 14:35> Critical Care Time Critical Care Time Critical Care Time: No <MERT Hsu Last Filed: 10/30/22 14:35> Discharge Plan Discharge Clinical Impression: Strep pharyngitis <MERT Hill Last Filed: 10/30/22 11:26> Patient Disposition: Home, Self-Care <MERT Hill Last Filed: 10/30/22 11:26> Instructions: Strep Throat (ED) <MERT Hill Last Filed: 10/30/22 11:26> Additional Instructions: You tested positive for strep throat today. Take the prescribed Augmentin for the next 10 days. Do not miss any doses and complete the entire course. Use warm salt water gargles several times per day. Rest and stay hydrated. You were tested for Gonorrhea and Chlamydia - treatment was started. We will only call you if your results are positive. recommend monitoring on the patient portal, if negative you can stop the doxycycline. Follow up with your PCP as needed. <MERT Hill Last Filed: 10/30/22 11:26> Prescriptions: New amoxicillin-pot clavulanate 875-125 mg tablet 1 tab PO BID Qty: 20 0RF doxycycline monohydrate 100 mg capsule 100 mg PO BID Qty: 14 0RF No Action ondansetron 4 mg tablet,disintegrating 4 mg PO Q6H PRN (Reason: nausea and vomiting) Qty: 10 0RF dicyclomine 10 mg capsule 10 mg PO TID PRN (Reason: abdominal pain) Qty: 15 0RF <MERT Hill - Last Filed: 10/30/22 11:26> Interventions: ED Discharge Assessment Last Done: 10/30/22 14:11 <MERT Hill - Last Filed: 10/30/22 11:26> Discharge Date/Time: 10/30/22 14:12 <MERT Hill - Last Filed: 10/30/22 11:26>
[2022-10-30 11:56] LABS: IDNOW Serial# 6674DD1D
[2022-10-30 11:57] LABS: Strep A Nucleic Acid Positive (Negative)
[2022-10-30 12:00] LABS: Basophils Absolute Auto 0.1 X10*3/uL (0.0-0.2); Basophils Percent Auto 0.9 % (0-2); Eosinophils Absolute Auto 0.1 X10*3/uL (0.0-0.4); Eosinophils Percent Auto 0.5 % (0-4); Hematocrit 51.2 % (42.0-52.0); Hemoglobin 17.5 g/dl (14.0-18.0); Imm Gran Abs Auto 0.13 X10*3/uL (0.00-0.03); Imm Gran Pct Auto 1.2 % (0.0-0.4); Lymphocytes Absolute Auto 4.7 X10*3/uL (1.2-4.9); Lymphocytes Percent Auto 41.7 % (20-40); MANUAL DIFF FLAG SCAN; Mean Corpuscular HGB Conc 34.2 g/dl (31.0-36.0); Mean Corpuscular Hemoglobin 31.1 pg (27.0-33.0); Mean Corpuscular Volume 90.9 fL (80.0-98.0); Mean Platelet Volume 9.6 fL (9.4-12.4); Monocytes Absolute Auto 1.2 X10*3/uL (0.1-1.2); Neutrophils Percent Auto 44.7 % (45-73); Platelet Count 210 X10*3/uL (160-400); Red Blood Count 5.63 X10*6/uL (4.60-5.80); Red Cell Distribution Width 14.9 % (11.0-16.0); SCAN SMEAR FLAG 1; White Blood Count 11.2 X10*3/uL (4.8-10.8)
[2022-10-30 12:11] LABS: Alanine Aminotransferase 89 U/L (0-40); Albumin Level 4.3 g/dL (3.5-5.0); Alkaline Phosphatase 210 U/L (39-117); Anion Gap 16 (12-20); Aspartate Amino Transferase 128 U/L (5-37); Bilirubin Total 0.7 mg/dL (0.0-1.0); Blood Urea Nitrogen 9 mg/dL (9-16); Calcium 9.7 mg/dL (8.4-10.2); Carbon Dioxide 27 mmol/L (22-29); Chloride 101 mmol/L (96-108); Creatinine Clr Calc Pharmacy 145.3; Estimated Glomerular Filt Rate > 60; Glucose Random 100 mg/dL (60-115); Magnesium 1.7 mg/dL (1.6-2.6); Potassium 4.5 mmol/L (3.3-5.1); Sodium 139 mmol/L (135-145); Total Protein 8.3 g/dL (6.5-8.0)
[2022-10-30 12:19] LABS: SLIDE REVIEW VERIFIED
[2022-10-30 12:42] VITALS: BP 147/101; PULSE 100; RESP 20; TEMP 36.9; O2SAT 97
[2022-10-30 12:43] LABS: Monotest Negative (Negative)
[2022-10-30 12:49] LABS: Influenza A PCR NEGATIVE (Negative); Influenza B PCR NEGATIVE (Negative); Resp Syncy Virus RNA Qual PCR NEGATIVE (Negative); SARS COV2 PCR INHOUSE NEGATIVE (Negative)
[2022-10-30 13:08] LABS: Syphilis Screen Nonreactive (Nonreactive)
[2022-10-30] MEDS: Doxycycline Monohydrate 100 MG CAPSULE PO (13:10)
[2022-10-30] MEDS: cefTRIAXone sodium 250 MG, Lidocaine HCl 1 % MPF 0.9 ML IM (13:10)
[2022-10-30 15:18] LABS: CT PCR NOT DETECTED (Not Detect.); NG PCR NOT DETECTED (Not Detect.)
== END 2022-10-30 14:12 | disposition home or self-care (01) ==
PROVIDERS: Physician Assistant Medical; Emergency Provider Emergency Medicine
DX: J02.0 Streptococcal pharyngitis (principal); Z20.822 Contact with and (suspected) exposure to COVID-19; Z20.828 Contact with and (suspected) exposure to other viral communicable diseases; F12.90 Cannabis use, unspecified, uncomplicated
CPT/HCPCS: 0241U; 0353U; 36415; 80053; 83735; 85025; 86308; 86780; 87651; 96372; 99284; J0696

== ENCOUNTER 2022-11-20 00:18 | Emergency (ER) | payer MEDICAID, SELFPAY ==
[2022-11-20 00:28] VITALS: BP 136/83; PULSE 110; RESP 16; TEMP 36.4; O2SAT 98; BMI 20.9
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
== END 2022-11-20 01:17 | disposition home or self-care (01) ==
PROVIDERS: Emergency Provider Emergency Medicine Emergency Medical Services
DX: S01.21XA Laceration without foreign body of nose, initial encounter (principal); V43.52XA Car driver injured in collision with other type car in traffic accident, initial encounter; Y93.89 Activity, other specified; Y92.413 State road as the place of occurrence of the external cause; Y99.8 Other external cause status
CPT/HCPCS: 99282; 99284

== ENCOUNTER 2022-12-29 23:14 | Emergency (ER) | payer MEDICAID, SELFPAY ==
[2022-12-29 23:25] VITALS: BP 136/84; PULSE 121; O2SAT 100
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
--- NOTE | 2022-12-29 23:54 | PC.NURSE ---
Discharged at this time. The pt signed out AMA> He verbalized an understanding of all DC orders and ambulated out of the ED independently and with steady gait. Prior to leaving we reviewed proper uses and indications for Narcan use and the pt was able to demonstrate how to use the [facility] AT THE [facility] narcan kit. pt ambulated out safely, steadily. No resp. distress. speaking in full sentences. calm and cooperative and extremely apologetic for wasting your time.
== END 2022-12-29 23:56 | disposition left against medical advice (07) ==
PROVIDERS: Emergency Provider Internal Medicine
DX: T40.5X1A Poisoning by cocaine, accidental (unintentional), initial encounter (principal); Y92.9 Unspecified place or not applicable; Z79.899 Other long term (current) drug therapy
CPT/HCPCS: 99282

== ENCOUNTER 2023-02-22 16:18 | Emergency (ER) | payer MEDICAID, SELFPAY ==
[2023-02-22 16:26] VITALS: BP 143/102; PULSE 108; RESP 16; O2SAT 97; BMI 22.7
--- NOTE | 2023-02-22 16:28 | PC.NURSE ---
Pt alert/oriented. Speaking in full clear sentences, ambulating with steady gait, understanding of leaving AMA per provider. Denies si/hi
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
== END 2023-02-22 16:32 | disposition left against medical advice (07) ==
LOC: HO.ED 16:31
PROVIDERS: Emergency Provider Internal Medicine
DX: R40.20 Unspecified coma (principal); T50.901A Poisoning by unspecified drugs, medicaments and biological substances, accidental (unintentional), initial encounter; Y92.410 Unspecified street and highway as the place of occurrence of the external cause; I10 Essential (primary) hypertension; R45.1 Restlessness and agitation; Z79.899 Other long term (current) drug therapy
CPT/HCPCS: 99282

== ENCOUNTER 2023-04-19 23:34 | Emergency (ER) | payer MEDICAID, SELFPAY ==
[2023-04-19 23:39] VITALS: BP 148/109; PULSE 107; O2SAT 97; BMI 20.2
[2023-04-19 23:47] VITALS: BP 135/98; PULSE 98; RESP 14; TEMP 36.6; O2SAT 97
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
== END 2023-04-20 01:56 ==
PROVIDERS: Emergency Provider Internal Medicine
DX: S09.93XA Unspecified injury of face, initial encounter (principal); S69.91XA Unspecified injury of right wrist, hand and finger(s), initial encounter; R51.9 Headache, unspecified; M79.641 Pain in right hand; Y04.8XXA Assault by other bodily force, initial encounter; Y93.9 Activity, unspecified; Y92.9 Unspecified place or not applicable; Y99.9 Unspecified external cause status; Z79.899 Other long term (current) drug therapy
CPT/HCPCS: 70486; 73120; 99284

== ENCOUNTER 2023-05-07 10:56 | Emergency (ER) | payer MEDICAID, SELFPAY ==
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
[2023-05-07 11:01] VITALS: BP 152/102; PULSE 80; RESP 19; TEMP 36.6; O2SAT 99; BMI 20.8
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
[2023-05-07 14:45] LABS: Amphetamine Screen Urine Not Detected (Not Detect); Barbiturates, Urine Not Detected (Not Detect); Benzodiazepines Screen Urine Not Detected (Not Detect); Cannabinoid Screen Urine POSITIVE (Not Detect); Cocaine Screen Urine POSITIVE (Not Detect); Fentanyl, urine POSITIVE (Not Detect); Opiate Screen Urine POSITIVE (Not Detect); Phencyclidine Screen Urine Not Detected (Not Detect)
[2023-05-07 14:48] LABS: Appearance Urine Hazy; Color Urine DK YELLOW; Glucose Urine UA Negative (Negative); Leukocyte Esterase Urine Negative (Negative); Nitrite Urine Negative (Negative); Specific Gravity - Urine 1.025 (1.005-1.025); UMIC TRIGGER UACC YES; Urine Blood Negative (Negative); Urine Ketones Trace mg/dL (Negative); Urine Protein 30 (1+) mg/dL (Neg-Trace)
[2023-05-07 15:15] LABS: Bacteria Urine None Seen (None Seen); RBC Urine 0-2 /HPF (0-2); Squamous Epithelial Cell Urine 0-2 /HPF (0-2); WBC Urine 0-5 /HPF (0-5)
[2023-05-07 15:16] LABS: Calcium Oxalate Crystals Urine Present; Hyaline Casts Urine 0-2 /LPF (0-2)
--- NOTE | 2023-05-07 16:18 | MHC.EDTECH ---
sling applied on right shoulder, pt tolerated well, PA aware
[2023-05-07 16:42] VITALS: BP 133/99; PULSE 85; RESP 16; O2SAT 98
[2023-05-08 03:34] LABS: CT PCR NOT DETECTED (Not Detect.); NG PCR NOT DETECTED (Not Detect.)
== END 2023-05-07 16:46 | disposition home or self-care (01) ==
PROVIDERS: Physician Assistant Medical; Emergency Provider Emergency Medicine
DX: S43.121A Dislocation of right acromioclavicular joint, 100%-200% displacement, initial encounter (principal); V13.4XXA Pedal cycle driver injured in collision with car, pick-up truck or van in traffic accident, initial encounter; Y93.55 Activity, bike riding; Z20.2 Contact with and (suspected) exposure to infections with a predominantly sexual mode of transmission; F12.90 Cannabis use, unspecified, uncomplicated; Y92.414 Local residential or business street as the place of occurrence of the external cause; Y99.9 Unspecified external cause status; Z79.899 Other long term (current) drug therapy
CPT/HCPCS: 0353U; 73030; 80307; 81001; 99283; 99284

== ENCOUNTER 2023-05-12 09:07 | Outpatient (AMB) | payer MEDICAID, SELFPAY ==
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
[2023-05-12 09:18] VITALS: BMI 20.8
== END 2023-05-12 09:45 | disposition home or self-care (01) ==
PROVIDERS: Visit Provider Physician Assistant
DX: S43.109A Unspecified dislocation of unspecified acromioclavicular joint, initial encounter (principal)
CPT/HCPCS: 99203

== ENCOUNTER → 2023-05-12 09:07 | Outpatient (BNVA) | payer MEDICAID, SELFPAY | PROVIDERS: Visit Provider Physician Assistant | DX: S43.109A Unspecified dislocation of unspecified acromioclavicular joint, initial encounter (principal) | CPT/HCPCS: 99203 ==

== ENCOUNTER 2023-06-11 09:32 | Outpatient (AMB) | payer MEDICAID, SELFPAY ==
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
[2023-06-11 09:41] VITALS: BMI 20.8
== END 2023-06-11 10:04 | disposition home or self-care (01) ==
PROVIDERS: Visit Provider Physician Assistant
DX: S43.109A Unspecified dislocation of unspecified acromioclavicular joint, initial encounter (principal)

== ENCOUNTER → 2023-06-11 09:32 | Outpatient (BNVA) | payer MEDICAID, SELFPAY | PROVIDERS: Visit Provider Physician Assistant | DX: S43.101D Unspecified dislocation of right acromioclavicular joint, subsequent encounter (principal) | CPT/HCPCS: 99212; 99213 ==

== ENCOUNTER 2023-08-14 00:57 | Emergency (ER) | payer MEDICAID, SELFPAY ==
[2023-08-14 01:06] VITALS: BP 178/70; PULSE 120; O2SAT 96
[2023-08-14 01:07] VITALS: BP 140/106; PULSE 121; RESP 18; TEMP 36.8; O2SAT 96; BMI 22.3
--- NOTE | 2023-08-14 01:58 | ED_ITS ---
HPI - General Adult General Chief complaint: Overdose Stated complaint: od Time Seen by Provider: 08/14/23 01:55 Source: patient, RN notes reviewed and old records reviewed Mode of arrival: ambulatory Limitations: no limitations History of Present Illness HPI narrative: 28-year-old male presents for evaluation of a suspected accidental drug overdose. Patient reports ?I just but some marijuana also somebody I probably should not have. ? He believes it was laced with opioids Patient was reportedly reportedly given Narcan several times by EMS Patient is quite adamant that this was not an intentional overdose and he did not intend to use any opiates He has no complaints or concerns at this time but wants to leave the hospital Related Data Previous Rx's Medication Instructions Recorded dicyclomine 10 mg capsule 10 mg PO TID PRN abdominal pain 11/16/21 #15 caps ondansetron 4 mg disintegrating 4 mg PO Q6H PRN nausea and 11/16/21 tablet vomiting #10 tabs naloxone 4 mg/actuation nasal 4 mg intranasal Q2M PRN opioid 02/22/23 spray (Narcan) overdose #2 ea ibuprofen 800 mg tablet 800 mg PO Q8H PRN pain 30 days #90 05/12/23 tabs Allergies Allergy/AdvReac Type Severity Reaction Status Date / Time No Known Allergies Allergy Verified 08/14/23 01:16 [No Known Allergies*] Review of Systems Constitutional: Constitutional: Denies chills and Denies fever(s) Eyes: Eyes: Denies blurry vision ENT: Denies vertigo Cardiovascular: Cardiovascular: Denies chest pain and Denies dyspnea Respiratory: Respiratory: Denies cough and Denies dyspnea Gastrointestinal: Gastrointestinal: Denies abdominal pain Neurologic: Denies vertigo [facility] Past Medical History Medical History No known health problems Social History Social History Alcohol intake: current Alcohol intake frequency: 3 or more drinks per day Alcohol type: hard liquor Substance Use Type: Marijuana Current occupational status: unemployed Current occupation: rt hand Physical Exam ED Vital Signs: Vital Signs - 24 hr 08/14/23 01:07 Temperature 98.3 F Pulse Rate 121 H Respiratory Rate 18 Blood Pressure 140/106 H Pulse Oximetry 96 Oxygen Delivery Method Room Air BMI result Body Mass Index 22.3 Const General: healthy appearing, comfortable, no acute distress, alert and awake Nutritional Appearance: well nourished Orientation/consciousness: patient oriented x3 HENMT Head: Yes normocephalic and Yes atraumatic Eyes Eyelids: Yes eyelids normal Conjunctivae: conjunctivae normal Sclerae: sclerae normal Corneas: corneas normal Pupils: Equal, round and reactive pupils present EOM: EOMs intact bilaterally Neck Neck: Yes full ROM Resp Effort & Inspection: normal respiratory effort, able to speak in complete sentences and not labored Cardio Rate: regular rate Rhythm: regular rhythm GI Inspection: No distended Palpation (GI): Soft to palpation, not firm, nontender, no guarding and not rigid Skin General skin exam: elasticity normal Neuro General: patient oriented x3 Cranial nerves: Yes Equal, round and reactive pupils present and Yes Bilaterally intact EOM present Cognition (Neuro): normal cognition Extrem Other: Moving all extremities well without any obvious deformities Course Reevaluation(s) Reevaluation #1: Patient was advised that given the amount of Narcan he received we should observe him in the right department for least a couple of hours total. The patient does not wish to stay any longer and does not want to provided drug screen. Time: 02:07 Medical Decision Making Medical Decision Making MDM Narrative: 28-year-old male presents for evaluation of ?I think I took something that I did not mean to. ? he reports he did not intentionally overdose but likely did. The plan of smoking marijuana but believes it was laced with opiates. Patient states that he has a remote history of opiate abuse but has been clean for quite some time He states that he did not want to be transported to the hospital as he was awake and alert as upon waking up in the ambulance. He reports that he would like to go home because ?I have court in the morning and I have to work tomorrow. Patient expresses desire to leave against medical advice. He does not want any labs or workup including drug screen ordered. I informed of the risks and benefits of leaving prior to workup this persist or do not know what he overdosed on. Patient accepts these risks and still wishes to leave against medical advice Differential Diagnosis Differential Diagnoses: The differential diagnosis associated with the presentation includes Opiate abuse Drug overdose Substance abuse Syncope Discharge Plan Discharge Clinical Impression: Drug overdose Patient Disposition: Left Against Medical Advice Instructions: Adult Overdose (ED) Additional Instructions: You are leaving against medical advice is we are not sure what You overdosed on. You declined labs and a drug screen You may return if you change your mind and would like to have a drug screen ordered He may return if you wish to speak to the care team Prescriptions: No Action ondansetron 4 mg tablet,disintegrating 4 mg PO Q6H PRN (Reason: nausea and vomiting) Qty: 10 0RF dicyclomine 10 mg capsule 10 mg PO TID PRN (Reason: abdominal pain) Qty: 15 0RF naloxone [Narcan] 4 mg/actuation spray,non-aerosol 4 mg intranasal Q2M PRN (Reason: opioid overdose) Qty: 2 0RF Rx Instructions: spray 1 dose into ONE nostril; alternate nostrils w each dose until help arrives ibuprofen 800 mg tablet 800 mg PO Q8H PRN (Reason: pain) 30 Days Qty: 90 3RF Stand Alone Forms: Against Medical Advice
== END 2023-08-14 02:07 | disposition left against medical advice (07) ==
PROVIDERS: Emergency Provider Emergency Medicine
DX: T40.711A Poisoning by cannabis, accidental (unintentional), initial encounter (principal); T50.901A Poisoning by unspecified drugs, medicaments and biological substances, accidental (unintentional), initial encounter; Y92.9 Unspecified place or not applicable; Z79.899 Other long term (current) drug therapy
CPT/HCPCS: 99284

== ENCOUNTER 2024-06-25 12:14 | Emergency (ER) | payer SELFPAY ==
--- NOTE | ~2024-06-25 | XR_ITS ---
EXAMINATION: XR FINGER, LEFT CLINICAL INFORMATION: Dog bite to left index finger. COMPARISON: None available. TECHNIQUE: 3 radiographs of the left index finger were performed. FINDINGS: There is no fracture or dislocation. The soft tissue overlying the second digit is mildly swollen. No radiopaque foreign object.. XR/XR finger LT min 2V IMPRESSION: No fracture or dislocation. Mild soft tissue swelling. Electronically signed by: Dash Franco DO 06/25/2024 02:38 PM EDT
--- NOTE | ~2024-06-25 | XR_ITS ---
EXAMINATION: XR TOES, RIGHT CLINICAL INFORMATION: Stubbed right fifth toe. COMPARISON: None available. TECHNIQUE: 3 views of the right toes were obtained. FINDINGS: There is no fracture or dislocation. The soft tissue overlying the fifth toe is mildly swollen. No radiopaque foreign object. XR/XR toe RT min 2V IMPRESSION: No fracture or dislocation. Soft tissue swelling. Electronically signed by: Dash Franco DO 06/25/2024 02:36 PM EDT
[2024-06-25 12:59] VITALS: BP 136/94; PULSE 97; RESP 16; TEMP 36.9; O2SAT 100; BMI 20.1
--- NOTE | 2024-06-25 13:03 | ED.GENADULT ---
HPI - General Adult General Chief complaint: General Medical Stated complaint: Dog bite, toe injury Time Seen by Provider: 06/25/24 14:42 Source: patient Mode of arrival: ambulatory Limitations: no limitations History of Present Illness ED Provider: Buck Hodge pA-C HPI narrative: 29 yold male presents to the ED for being bitten on left index finger by dog last night and scratched in left arm by cat. Patient states last night dog and cat were fighting and he tried to break them up and by accident he got bit and scratched. Patient states his dog and cat up-to-date with rabies. Patient last tetanus shot was 2015. Patient also states right fifth toe pain after hitting it on a door by accident. Patient states no fever, chills, redness, pus discharge, red streaks. Related Data Previous Rx's ?Medication ?Instructions ?Recorded dicyclomine 10 mg capsule 10 mg PO TID PRN abdominal pain 11/16/21 #15 caps ondansetron 4 mg disintegrating 4 mg PO Q6H PRN nausea and 11/16/21 tablet vomiting #10 tabs naloxone 4 mg/actuation nasal 4 mg intranasal Q2M PRN opioid 02/22/23 spray (Narcan) overdose #2 ea ibuprofen 800 mg tablet 800 mg PO Q8H PRN pain 30 days #90 05/12/23 tabs amoxicillin 875 mg-potassium 1 tab PO Q12H 10 days #20 tabs 06/25/24 clavulanate 125 mg tablet Allergies Allergy/AdvReac Type Severity Reaction Status Date / Time No Known Allergies Allergy Verified 06/25/24 13:04 [No Known Allergies*] Review of Systems Review of Systems: left index pain and right big toe pain Yes all other systems are reviewed and are negative [facility] Past Medical History Medical History No known health problems Social History Social History Alcohol intake: current Alcohol intake frequency: 3 or more drinks per day Alcohol type: hard liquor Substance Use Type: Marijuana Advance Directives: No Advance Directives Information Provided: No Current occupational status: unemployed Current occupation: rt hand Physical Exam ED Vital Signs: Vital Signs - 24 hr 06/25/24 12:59 06/25/24 15:17 Temperature 98.5 F 98.5 F Pulse Rate 97 97 Respiratory Rate 16 16 Blood Pressure 136/94 H 136/94 H Pulse Oximetry 100 100 Oxygen Delivery Method Room Air Room Air BMI result Body Mass Index 20.1 Const General: cooperative, healthy appearing, comfortable, no acute distress, well developed, alert, awake and Physically active Orientation/consciousness: patient oriented x3 [facility] Head: Yes normal to inspection, Yes No palpable skull fracture present, Yes normocephalic, Yes atraumatic and No abrasion Eyes General: appearance normal, both eyes and all related structures Neck Neck: Yes normal visual inspection, Yes full ROM, Yes no lymphadenopathy, Yes no meningeal signs, Yes trachea midline, Yes supple, No anterior neck swelling and No tender Chest Chest palpation & inspection: normal inspection of the chest and normal palpation of entire chest wall Resp Effort & Inspection: normal respiratory effort and able to speak in complete sentences Auscultation: clear to auscultation bilaterally Cardio Jugular venous distension: no JVD Heart sounds: S1 normal heart sound present and S2 normal heart sound present GI Inspection: Yes normal to inspection Palpation (GI): Soft to palpation, not firm, nontender, no guarding and not rigid General: No CVA tenderness and Yes no CVA tenderness Back/Spine/Pelvis Back: no CVA tenderness, No CVA tenderness and No back tenderness Skin General skin exam: no rashes or lesions noted, elasticity normal and turgor normal Neuro General: patient oriented x3, gait normal, tone normal, moves all extremities, Normal light touch and pain sensation, no meningeal signs, no focal motor deficits, CN's II-XI intact bilaterally and normal sensation to monofilament Extrem General: Yes normal to inspection, Yes full ROM and Yes capillary refill normal Elbow/forearm/wrist images: 1. Very superficial cat scratch. Negative for swelling, redness, red streaks, bluish black discoloration, or deformity. Motor/neuro/vascular exam intact 2. Very superficial cat scratch. Negative for swelling, redness, red streaks, bluish black discoloration, or deformity. Motor/neuro/vascular exam intact Hand/finger images: 1. Small bite. Negative for active bleeding. Negative for erythema. Negative for pus discharge or foul odor. Rest of extremity normal. Motor/neuro/vascular exam intact. Patient has range of motion of finger. 2. Small bite. Negative for active bleeding. Negative for erythema. Negative for pus discharge or foul odor. Rest of extremity normal. Motor/neuro/vascular exam intact. Patient has range of motion of finger. 3. Small bite. Negative for active bleeding. Negative for erythema. Negative for pus discharge or foul odor. Rest of extremity normal. Motor/neuro/vascular exam intact. Patient has range of motion of finger. Ankle/foot/toe images: 1. Positive for ecchymosis and swelling. Negative for crepitus or deformity. Rest of extremity normal. Motor/neuro/vascular exam intact. Psych Appearance: grossly normal, well kempt and not disheveled Course Course Course Narrative: This is a Rapid Medical Examination (RME) performed by Michael Stephenson PA-C in triage. Full HPI, ROS, assessment and treatment plan per primary provider in the Main ED. 29 yo male here for eval of left 2nd digit pain s/p dog bite at 2200 last night. reports breaking up a fight between his dog and cat when his left pointer finger became caught in the dogs mouth. recently rehomed his dog however is unsure of rabies status. states he's pretty sure the dog is vaccinated as he's been to the vet. believes his tetanus is UTD. also admits to stubbing his right 5th toe on a wall last night. states that it is broken. + 4 puncture wounds noted to left 2nd digit, pain w/ flexion Plan: xrs, +/- rabies series Medications Administered Discontinued Medications Generic Name Dose Route Start Last Admin Trade Name Freq PRN Reason Stop Dose Admin Diphtheria/Tetanus/Acell Pertussis 0.5 ml 06/25/24 14:53 06/25/24 15:06 Diphth,Pertus(Acell),Tet Adult 0.5 Ml Syringe IM 06/25/24 14:54 0.5 ml .ONCE ONE Administration Medical Decision Making Medical Decision Making [facility] Narrative: 29 yold male presents to the ED for dog bite to left index finger and cat scratch on left forearm. right fifth toe pain due to hitting on door. Patient's x-rays of hand and feet normal. Presently negative for signs of lymphangitis, necrotizing fasciitis, or infectious tenosynovitis. Not suspecting osteomyelitis. Patient explained worrisome signs informed to return to the ED immediately. Patient given Tdap and discharged with antibiotics. Differential Diagnosis Differential Diagnoses: The differential diagnosis associated with the presentation includes (Dog bite, cat scratch, toe fracture) Admission/Observation Consideration of admission/observation: Escalation of care including admission/observation considered Independent Interpretation I performed an independent interpretation of an: Plain X-Ray Radiology Impression Discussion of test interpretation with radiology: I have reviewed the radiologist's reading. Independent Historian Clinical information obtained from an independent historian. History obtained from or confirmed by: Other (Patient) External Record Review External record reviewed: Other (Prior visits) Prescription Management I considered prescription management with: Antibiotic Discharge Plan Discharge Clinical Impression: Dog bite, Contusion of fifth toe Patient Disposition: Home, Self-Care Instructions: Animal Bite (ED) Additional Instructions: Return to the ED immediately for red streaks down the arm, inability to move finger, pus discharge, foul odor, worsening redness, fever, chills, worsening toe pain, worsening bluish discoloration of toe, redness, or any other concerning symptoms. Prescriptions: New amoxicillin-pot clavulanate 875-125 mg tablet 1 tab PO Q12H 10 Days Qty: 20 0RF No Action ondansetron 4 mg tablet,disintegrating 4 mg PO Q6H PRN (Reason: nausea and vomiting) Qty: 10 0RF dicyclomine 10 mg capsule 10 mg PO TID PRN (Reason: abdominal pain) Qty: 15 0RF naloxone [Narcan] 4 mg/actuation spray,non-aerosol 4 mg intranasal Q2M PRN (Reason: opioid overdose) Qty: 2 0RF Rx Instructions: spray 1 dose into ONE nostril; alternate nostrils w each dose until help arrives ibuprofen 800 mg tablet 800 mg PO Q8H PRN (Reason: pain) 30 Days Qty: 90 3RF Stand Alone Forms: Work/School Release Interventions: ED Discharge Assessment Last Done: 06/25/24 15:17 Discharge Date/Time: 06/25/24 15:22 Print Language: Latvian
[2024-06-25] MEDS: Diphth,Pertus(ACell),Tet Adult 0.5 ML SYRINGE IM (15:06)
[2024-06-25 15:17] VITALS: BP 136/94; PULSE 97; RESP 16; TEMP 36.9; O2SAT 100
== END 2024-06-25 15:22 | disposition home or self-care (01) ==
PROVIDERS: Emergency Provider Emergency Medicine
DX: S90.122A Contusion of left lesser toe(s) without damage to nail, initial encounter (principal); W22.8XXA Striking against or struck by other objects, initial encounter; S61.452A Open bite of left hand, initial encounter; W54.0XXA Bitten by dog, initial encounter; Y93.89 Activity, other specified; Y92.009 Unspecified place in unspecified non-institutional (private) residence as the place of occurrence of the external cause; Y99.9 Unspecified external cause status; Z23 Encounter for immunization
CPT/HCPCS: 73140; 73660; 90471; 90715; 99282; 99284

== ENCOUNTER 2025-02-09 13:30 | Emergency (ER) | payer SELFPAY ==
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
--- NOTE | ~2025-02-09 | CT_ITS ---
EXAMINATION: CT CERVICAL SPINE WITHOUT CONTRAST CLINICAL INFORMATION: Trauma, neck pain. COMPARISON: None available. TECHNIQUE: Spiral CT imaging of the cervical spine performed in axial plane without contrast. Multiplanar reformatted images were constructed from the axial data set. This CT examination was performed using dose optimization techniques as appropriate, variously including the following: *Automated exposure control *Adjustment of mA and/or kV according to patient size (this includes techniques or standardized protocols for targeted exams where dose is matched to indication/reason for exam; i.e. extremities or head) *Use of iterative reconstruction technique FINDINGS: CORONAL ALIGNMENT: -Normal. SAGITTAL ALIGNMENT: -Normal. -No subluxations. C1-C2 AND CRANIOCERVICAL JUNCTION: -Intact and normally aligned. VERTEBRAL BODIES AND FACETS: -No fractures, compression deformities, traumatic subluxations, or suspicious bone lesions. -Normal facet alignment bilaterally. DISCS: -Preserved at all levels. CENTRAL CANAL: -No evidence of high-grade central canal narrowing or large disc herniation allowing for modality limitations. PREVERTEBRAL AND PARAVERTEBRAL SOFT TISSUES: -No prevertebral or paravertebral soft tissue edema or swelling. -Normal thyroid. -No mass or abnormal lymphadenopathy within the neck. LUNG APICES: -Mild scarring apically although clear bilaterally. CT/CT cervical spine wo IV con IMPRESSION: 1. No CT evidence of acute cervical spine fracture or injury. Electronically signed by: Fredis Walker MD 02/09/2025 02:17 PM EDT
--- NOTE | ~2025-02-09 | CT_ITS ---
EXAMINATION: CT HEAD WITHOUT IV CONTRAST HISTORY: trauma. TECHNIQUE: Unenhanced helical CT of the head was performed per standard departmental protocol. Coronal and sagittal reformats of the head were also evaluated. One or more of the following techniques was used for dose reduction: Automated exposure control, adjustment of the mA and/or kV according to patient size, use of iterative reconstruction technique. DLP: 638 mGy-cm COMPARISON: There are no prior studies for comparison. FINDINGS: BRAIN: The brain parenchyma is unremarkable. There is normal schumacher/white differentiation. The ventricular system is normal in size and configuration. There is no mass effect or midline shift. No intra- or extra-axial fluid collections are identified. SINUSES: The visualized paranasal sinuses are clear. The mastoid air cells and middle ear cavities are well pneumatized. ORBITS: The visualized orbits are unremarkable. BONES/SOFT TISSUES: The extracranial soft tissues are unremarkable. The calvarium is intact. No suspicious lytic or sclerotic lesions. CT/CT head/brain wo IV con IMPRESSION: Unremarkable unenhanced head CT. Electronically signed by: Hudson Stein MD 02/09/2025 02:14 PM EDT
[2025-02-09 13:36] VITALS: BP 136/94; BP 170/117; PULSE 105; PULSE 98; RESP 16; TEMP 36.8; O2SAT 97; O2SAT 98; BMI 20.1
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
[2025-02-09 13:44] VITALS: BP 140/94; PULSE 91; RESP 16; O2SAT 98
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
[2025-02-09 14:37] VITALS: BP 140/94; PULSE 91; RESP 16; TEMP 36.8; O2SAT 98
== END 2025-02-09 14:40 | disposition home or self-care (01) ==
LOC: HO.ED 14:38
PROVIDERS: Emergency Provider Emergency Medicine
DX: S09.90XA Unspecified injury of head, initial encounter (principal); S02.2XXA Fracture of nasal bones, initial encounter for closed fracture; Y04.2XXA Assault by strike against or bumped into by another person, initial encounter; Y93.9 Activity, unspecified; Y92.410 Unspecified street and highway as the place of occurrence of the external cause; Y99.9 Unspecified external cause status
CPT/HCPCS: 70450; 70486; 72125; 99284

== ENCOUNTER → 2025-02-09 13:35 | Outpatient (BNV) | payer SELFPAY | PROVIDERS: Emergency Provider Emergency Medicine; Visit Provider Radiology Diagnostic Radiology | DX: S19.9XXA Unspecified injury of neck, initial encounter (principal); M54.2 Cervicalgia; S02.2XXA Fracture of nasal bones, initial encounter for closed fracture; S09.90XA Unspecified injury of head, initial encounter | CPT/HCPCS: 70450; 70486; 72125 ==

== ENCOUNTER 2025-06-30 17:17 | Emergency (ER) | payer MEDICAID, SELFPAY ==
--- NOTE | 2025-06-30 18:11 | ED_ITS ---
HPI - Skin/Abscess/Foreign Bdy General Chief complaint: Wound/Laceration Stated complaint: left hand laceration Time Seen by Provider: 06/30/25 19:18 Source: patient Mode of arrival: ambulatory Limitations: no limitations History of Present Illness ED Provider: Aubrie Grier APRN HPI narrative: 30-year-old male who is left-hand dominant with no known medical history presents the ER with complaints of laceration to the left palm. Patient reports he was mopping with a metal mop when it broke causing a laceration to the left palm. His tetanus status up-to-date. He reports some mild bleeding at site. He does have some discomfort at the site. Denies any numbness, tingling, weakness of the extremity. Related Data Previous Rx's ?Medication ?Instructions ?Recorded dicyclomine 10 mg capsule 10 mg PO TID PRN abdominal p ain 11/16/21 #15 caps ondansetron 4 mg disintegrating 4 mg PO Q6H PRN nausea and 11/16/21 tablet vomiting #10 tabs naloxone 4 mg/actuation nasal 4 mg intranasal Q2M PRN opioid 02/22/23 spray (Narcan) overdose #2 ea ibuprofen 800 mg tablet 800 mg PO Q8H PRN pain 30 da ys #90 05/12/23 tabs amoxicillin 875 mg-potassium 1 tab PO Q12H 10 days #20 tabs 06/25/24 clavulanate 125 mg tablet Allergies Allergy/AdvReac Type Severity Reaction Status Date / Time No Known Allergies (No Known Allergy Verified 06/30/25 18:13 Allergies*) Review of Systems Review of Systems: Yes all other systems are reviewed and are negative Constitutional: Constitutional: Reports no additional constitutional complain ts, Denies body ache(s), Denies chills, Denies fever(s), Denies headache(s) and Denies weakness Eyes: Eyes: Reports no additional eye complaints and Denies change in vision ENT: Reports system reviewed and no additional complaints, except as documented, Denies dizziness, Denies headache(s), Denies nasal congestion, Denies nasal discharge and Denies neck pain Cardiovascular: Cardiovascular: Reports no additional cardiovascular complaints, Denies chest pain, Denies leg edema and Denies dyspnea Respiratory: Respiratory: Reports no additional respiratory complaints, Denies cough and Denies dyspnea Gastrointestinal: Gastrointestinal: Reports no additional gastrointestinal complaints, Denies abdominal pain, Denies diarrhea, Denies nausea and Denies v omiting Genitourinary: Genitourinary: Denies urinary incontinence Musculoskeletal: Musculoskeletal: Reports no additional musculoskeletal complaints, Denies back pain, Denies arthralgias, Denies joint swelling, Denies neck pain, Denies numbness and Denies tingling Integumentary/Breasts: Skin/Breast: Reports system reviewed and no additional complaints, except as docu, Denies rash and Reports wounds Neurologic: Reports system reviewed and no additional complaints, except as documented, Denies Abnormal speech present, Denies dizziness, Denies headache(s), Denies numbness, Denies tingling and Denies weakness [facility] Past Medical History Attestation statement: The following information was validated with the patient. Source: old records reviewed and nursing notes reviewed Medical History No known health problems Social History Social History Alcohol intake: former Substance Use Type: Crack/Cocaine and Marijuana Current occupational status: unemployed Current occupation: rt hand Physical Exam Vital Signs: Vital Signs: Last Vital Signs Temp 98.6 F 06/30/25 19:47 Pulse 106 H 06/30/25 19:47 Resp 18 06/30/25 19:47 BP 125/75 06/30/25 19:47 Pulse Ox 95 06/30/25 19:47 O2 Del Method Room Air 06/30/25 19:47 BMI result Body Mass Index 22.8 Const: General: cooperative, healthy appearing, comfortable and no acute distress Orientation/consciousness: patient oriented x3 Limitations: no limitations HEENT: Head: Yes normal to inspection Ears: hearing grossly normal bilaterally General nose exam: Normal external nose present Face and sinus: Yes normal facial exam Mouth: Normal oral and palatal mucosa present Throat: Yes posterior oropharynx normal Eyes: General: appearance normal, both eyes and all related structures Pupils: Equal, round and reactive pupils present Neck: Neck: Yes normal visual inspection Chest: Chest palpation & inspection: normal inspection of the chest Resp: Effort & Inspection: normal respiratory effort Auscultation: clear to auscultation bilaterally Cardio: Rate: regular rate Rhythm: regular rhythm Peripheral pulses: Peripheral pulses 2+ throughout GI: Inspection: Yes normal to inspection Palpation (GI): Soft to palpation and nontender Auscultation: normal bowel sounds Back/Spine/Pelvis: Thoracic/Lumbar Spine: thoracic and lumbar spine normal to inspection Skin: General skin exam: no rashes or lesions noted Neuro: General: patient oriented x3, no focal motor deficits and normal sensation to monofilament Cranial nerves: Yes Equal, round and reactive pupi ls present Cognition (Neuro): normal cognition Speech: No Abnormal speech present Gait exam (Neuro): Normal gait present Motor exam (neuro): 5/5 motor strength present throughout Extrem: Other: To the left hand the palmar aspect there is a 2 cm superficial laceration. There is no active bleeding noted. The patient has full active and passive range of motion of the hand and digits. He has normal distal sensation. 2+ pulses. Skin is pink warm and dry. General: Yes normal to inspection Course Course Course Narrative: This is an RME: Additional HPI, ROS, PE not included below will be deferred to primary provider. RME assessment and note performed by: Jenna Villa PA-C This is a [id number]-male who presents to the ER with a complaint of laceration to left palm laceration. Metal mop broke in his left hand and lacerated his left hand. 2cm partial thickness lac noted to palm. UTD with tdap Plan: wound care Medical Decision Making Medical Decision Making MDM Narrative: 30-year-old male who is left-hand dominant with no known medical history presents the ER with complaints of laceration to the left palm. Patient reports he was mopping with a metal mop when it broke causing a laceration to the left palm. His tetanus status up-to-date. He reports some mild bleeding at site. He does have some discomfort at the site. Denies any numbness, tingling, weakness of the extremity. To the left hand the palmar aspect there is a 2 cm superficial laceration. There is no active bleeding noted. The patient has full active and passive range of motion of the hand and digits. He has normal distal sensation. 2+ pulses. Skin is pink warm and dry. The site was cleansed with 1 L of saline. This was done with irrigation. I then applied adhesive glue and Steri-Strips with a dressing over the site. Reviewed worrisome signs and symptoms of when to return to the emergency room. Comfortable plan for discharge home. Differential Diagnosis Differential Diagnoses: The differential diagnosis associated with the presentation includes Laceration low suspicion for retained foreign body, fracture, tendon injury based on clinical exam Admission/Observation Consideration of admission/observation: Escalation of care including admission/observation considered Tests considered The following testing was considered but not selected: x-ray- low suspicion for fracture or foreign body require x-ray imaging Prescription Management I considered prescription management with: Antibiotic Discharge Plan Discharge Clinical Impression: Laceration Patient Disposition: Home, Self-Care Instructions: Laceration (ED), Skin Adhesive Care (ED), Skin Adhesive Strips (ED) Additional Instructions: Keep this wound clean, covered and dry Return for redness, drainage, swelling or fever Prescriptions: No Action ondansetron 4 mg tablet,disintegrating 4 mg PO Q6H PRN (Reason: nausea and vomiting) Qty: 10 0RF dicyclomine 10 mg capsule 10 mg PO TID PRN (Reason: abdominal pain) Qty: 15 0RF naloxone [Narcan] 4 mg/actuation spray,non-aerosol 4 mg intranasal Q2M PRN (Reason: opioid overdose) Qty: 2 0RF Rx Instructions: spray 1 dose into ONE nostril; alternate nostrils w each dose until help arrives amoxicillin-pot clavulanate 875-125 mg tablet 1 tab PO Q12H 10 Days Qty: 20 0RF ibuprofen 800 mg tablet 800 mg PO Q8H PRN (Reason: pain) 30 Days Qty: 90 3RF Referrals: Physician,None [Primary Care Provider, Medical] Interventions: ED Discharge Assessment Last Done: 06/30/25 19:47 Print Language: Italian
[2025-06-30 18:12] VITALS: BP 125/75; PULSE 106; RESP 18; TEMP 37; O2SAT 95; BMI 22.8
[2025-06-30 19:47] VITALS: BP 125/75; PULSE 106; RESP 18; TEMP 37; O2SAT 95
--- OUTSIDE RECORDS SUMMARY | 2025-06-30 19:54 | XMS_ITS | Clinical Summary ---
Author Organization [facility] Address [address] [place] [address] Care Team Providers Care Paleontology Teacher Name Role Phone Unavailable Primary Care Provider Unavailabl e Encounters Date Type Department Care Team Description 05/03/2025 Population Health Risk Score Formerly [facility] Care [facility] (C[facility]) Department [address] [facility] [address] [place] [id number] Provider, Population Health Generic from Last 3 Months Social History Tobacco Use Types Packs/Day Years Used Date Smoking Tobacco: Never Assessed Sex and Gender Information Value Date Recorded Sex Assigned at Male 08/12/2022 10:29 AM EDT Legal Sex Male 10:29 AM EDT Gender Identity Not on file Sexual Orientation Not on file Plan of Treatment Health Maintenance Due Date Last Done Comments Depression Screening 1993 HIV Screening 1993 SDOH Screening 1993 Disability Screening 1993 Alcohol/Substance Use Screening 2005 Tobacco Screening 2005 Family Planning (PISQ) 2008 HPV Vaccines (1 - Male 3-dos e series) 2008 Hepatitis C Screening 2011 DTaP/Tdap/Td Vaccines (1 - Tdap) 2012 Hepatitis B Vaccines (1 of 3 - 19+ 3-dose series) 2012 COVID-19 Vaccine (1 - 2023-2 5 season) 2025 Influenza Vaccine (#1) 2025 Zoster Vaccines (1 of 2) 2043 RSV Patients and Pa tients Aged 60 years or older (1 - 1-dose 75+ series) 2068 Pneumococcal Vaccine: Pediat rics (0 to 5 Years) and At-Risk Patients (6 to 49) Years Aged Out 05/23/2011 No longer eligi ble based on patient's age to complete this topic HIB Vaccines Aged Out No longer eligi ble based on patient's age to complete this topic Hepatitis A Vaccines Aged Out No long er eligible based on patient's age to complete this topic IPV Vaccines Aged Out No longer eligi ble based on patient's age to complete this topic Meningococcal B Vaccine Aged Out No l onger eligible based on patient's age to complete this topic Meningococcal Vaccine Aged Out No kathleen ernesto eligible based on patient's age to complete this topic RSV under 20 months Aged Out No longe r eligible based on patient's age to complete this topic Rotavirus Vaccines Aged Out No longer eligible based on patient's age to complete this topic [place] [address] [address] C3
== END 2025-06-30 19:51 | disposition home or self-care (01) ==
LOC: HO.ED 19:51
PROVIDERS: Emergency Provider Emergency Medicine
DX: S61.412A Laceration without foreign body of left hand, initial encounter (principal); M79.642 Pain in left hand; W26.9XXA Contact with unspecified sharp object(s), initial encounter; Y93.89 Activity, other specified; Y92.9 Unspecified place or not applicable; Y99.8 Other external cause status
CPT/HCPCS: 12001; 99282; 99284